=== PATIENT | male | born 1985 | race Caucasian/White ===

== ENCOUNTER 2019-12-29 13:37 | Outpatient (REF) | payer OTHER, SELFPAY | END 2019-12-29 13:38 | disposition home or self-care (01) | LOC: HO.LAB 13:37 | PROVIDERS: Visit Provider Internal Medicine | DX: Z20.828 Contact with and (suspected) exposure to other viral communicable diseases (principal) | CPT/HCPCS: U0003 ==

== ENCOUNTER 2023-06-12 08:42 | Outpatient (REF) | payer OTHER, SELFPAY ==
--- NOTE | ~2023-06-12 | XR_ITS ---
EXAMINATION: XR HIP, RIGHT CLINICAL INFORMATION: Ankylosing spondylitis. COMPARISON: None available. TECHNIQUE: AP and frog-leg lateral views of the right hip. FINDINGS: No fracture. Alignment is anatomic. Hip joint space is maintained. Soft tissues are unremarkable. XR/XR hip LT min 2V IMPRESSION: Normal right hip. EXAMINATION: XR HIP, LEFT CLINICAL INFORMATION: Ankylosing spondylitis. COMPARISON: None available. TECHNIQUE: AP and frog-leg lateral views of the left hip. FINDINGS: No fracture. Alignment is anatomic. Hip joint space is maintained. Soft tissues are unremarkable. IMPRESSION: Normal left hip.
--- NOTE | ~2023-06-12 | XR_ITS ---
EXAMINATION: XR HAND/WRIST, RIGHT CLINICAL INFORMATION: Ankylosing spondylitis. COMPARISON: Radiographs dated 09/01/2019. TECHNIQUE: PA, lateral, and oblique views of the right hand and wrist. FINDINGS: Bony alignment and mineralization are normal. No fracture or dislocation is seen. Alignment is anatomic. There is a neutral ulnar variance. The proximal and distal carpal rows are intact. The joint spaces are well-maintained. There are stable well marginated cysts noted of the trapezoid, the capitellum and of the ulnar styloid. No erosions are seen. No focal soft tissue swelling, calcification or foreign body is seen. XR/XR hand wrist LT IMPRESSION: Stable examination, without acute finding or unusual degenerative change noted. EXAMINATION: XR HAND/WRIST, LEFT CLINICAL INFORMATION: Ankylosing spondylitis. COMPARISON: Radiographs dated 09/01/2019. TECHNIQUE: PA, lateral, and oblique views of the left hand and wrist, together with a dedicated navicular view. FINDINGS: Bony alignment and mineralization are normal. No fracture or dislocation is seen. Alignment is anatomic. There is a neutral ulnar variance. The proximal and distal carpal rows are intact. Joint spaces are maintained. There are well marginated cysts noted of the trapezoid, which are unchanged from prior. No erosions are seen. There is a small degenerative calcification now seen adjacent to the distal radioulnar joint. IMPRESSION: Unremarkable radiographs of the hand and wrist, without unusual degenerative change noted.
--- NOTE | ~2023-06-12 | XR_ITS ---
EXAMINATION: XR SACROILIAC JOINTS CLINICAL INFORMATION: Ankylosing spondylitis. COMPARISON: Sacroiliac joint radiographs dated 01/13/2018. TECHNIQUE: AP and bilateral Judet views of the sacroiliac joints FINDINGS: Bones and soft tissues are normal. No fracture. Alignment is anatomic. Sacroiliac joint spaces are well-maintained without erosions or surrounding sclerosis. XR/XR sacroiliac joint min 3V IMPRESSION: Normal sacroiliac joints.
--- NOTE | ~2023-06-12 | XR_ITS ---
EXAMINATION: XR LUMBOSACRAL SPINE WITH OBLIQUES CLINICAL INFORMATION: Ankylosing spondylitis. COMPARISON: None available. TECHNIQUE: AP, both oblique, and lateral views of the lumbar spine. Lateral view of the lumbosacral junction. FINDINGS: Vertebral body heights are normal. There is a rudimentary disc space at S1-S2. There are Schmorl's nodes of the L3-L4 lower endplate. At L4-L5, there is mild posterior disc space narrowing and a 2 mm retrolisthesis. There is very mild disc space narrowing at L5-S1. No acute fracture or spondylolisthesis is seen. The posterior elements are intact. No spondylolysis defect is seen on the oblique views. The paravertebral soft tissues are unremarkable. XR/XR lumbar spine 4V min IMPRESSION: 1. There is mild degenerative disc disease at L4-L5 and L5-S1. 2. No acute fracture or spondylolisthesis is seen. There is no spondylolysis defect.
--- NOTE | ~2023-06-12 | XR_ITS ---
EXAMINATION: XR HIP, RIGHT CLINICAL INFORMATION: Ankylosing spondylitis. COMPARISON: None available. TECHNIQUE: AP and frog-leg lateral views of the right hip. FINDINGS: No fracture. Alignment is anatomic. Hip joint space is maintained. Soft tissues are unremarkable. XR/XR hip RT min 2V IMPRESSION: Normal right hip. EXAMINATION: XR HIP, LEFT CLINICAL INFORMATION: Ankylosing spondylitis. COMPARISON: None available. TECHNIQUE: AP and frog-leg lateral views of the left hip. FINDINGS: No fracture. Alignment is anatomic. Hip joint space is maintained. Soft tissues are unremarkable. IMPRESSION: Normal left hip.
--- NOTE | ~2023-06-12 | XR_ITS ---
EXAMINATION: XR HAND/WRIST, RIGHT CLINICAL INFORMATION: Ankylosing spondylitis. COMPARISON: Radiographs dated 09/01/2019. TECHNIQUE: PA, lateral, and oblique views of the right hand and wrist. FINDINGS: Bony alignment and mineralization are normal. No fracture or dislocation is seen. Alignment is anatomic. There is a neutral ulnar variance. The proximal and distal carpal rows are intact. The joint spaces are well-maintained. There are stable well marginated cysts noted of the trapezoid, the capitellum and of the ulnar styloid. No erosions are seen. No focal soft tissue swelling, calcification or foreign body is seen. XR/XR hand wrist RT IMPRESSION: Stable examination, without acute finding or unusual degenerative change noted. EXAMINATION: XR HAND/WRIST, LEFT CLINICAL INFORMATION: Ankylosing spondylitis. COMPARISON: Radiographs dated 09/01/2019. TECHNIQUE: PA, lateral, and oblique views of the left hand and wrist, together with a dedicated navicular view. FINDINGS: Bony alignment and mineralization are normal. No fracture or dislocation is seen. Alignment is anatomic. There is a neutral ulnar variance. The proximal and distal carpal rows are intact. Joint spaces are maintained. There are well marginated cysts noted of the trapezoid, which are unchanged from prior. No erosions are seen. There is a small degenerative calcification now seen adjacent to the distal radioulnar joint. IMPRESSION: Unremarkable radiographs of the hand and wrist, without unusual degenerative change noted.
[2023-06-12 09:52] LABS: MANUAL DIFF FLAG NO
[2023-06-12 10:16] LABS: Basophils Percent Auto 0.2 % (0-2); Eosinophils Absolute Auto 0.2 X10*3/uL (0.0-0.4); Eosinophils Percent Auto 2.6 % (0-4); Hematocrit 37.9 % (42.0-52.0); Hemoglobin 12.1 g/dl (14.0-18.0); Imm Gran Abs Auto 0.01 X10*3/uL (0.00-0.03); Imm Gran Pct Auto 0.2 % (0.0-0.4); Lymphocytes Absolute Auto 1.3 X10*3/uL (1.2-4.9); Lymphocytes Percent Auto 20.5 % (20-40); Mean Corpuscular HGB Conc 31.9 g/dl (31.0-36.0); Mean Corpuscular Hemoglobin 24.3 pg (27.0-33.0); Mean Corpuscular Volume 76.3 fL (80.0-98.0); Mean Platelet Volume 8.7 fL (9.4-12.4); Monocytes Absolute Auto 0.4 X10*3/uL (0.1-1.2); Monocytes Percent Auto 6.6 % (2-11); Neutrophils Absolute Auto 4.3 x10*3/uL (2.0-8.3); Neutrophils Percent Auto 69.9 % (45-73); Platelet Count 552 X10*3/uL (160-400); Red Blood Count 4.97 X10*6/uL (4.60-5.80); Red Cell Distribution Width 18.3 % (11.0-16.0); White Blood Count 6.2 X10*3/uL (4.8-10.8)
[2023-06-12 11:00] LABS: Alanine Aminotransferase 15 U/L (0-40); Albumin Level 3.7 g/dL (3.5-5.0); Alkaline Phosphatase 103 U/L (39-117); Anion Gap 11 (12-20); Aspartate Amino Transferase 24 U/L (5-37); Bilirubin Total 0.4 mg/dL (0.0-1.0); Blood Urea Nitrogen 6 mg/dL (9-16); C Reactive Protein 11.77 mg/dL (< or = 0.50); Carbon Dioxide 28 mmol/L (22-29); Chloride 98 mmol/L (96-108); Estimated Glomerular Filt Rate > 60; Glucose Random 123 mg/dL (60-115); Potassium 3.9 mmol/L (3.3-5.1); Sodium 133 mmol/L (135-145); Total Protein 9.1 g/dL (6.5-8.0)
[2023-06-12 11:05] LABS: HBS Num1 > 1000.00 mIU/mL (0-7.99); HBc Num1 0.09 S/CO (0.00-0.79); HBsAGNum1 0.34 S/CO (0.00-0.99); HIV AB/AG Nonreactive (Nonreactive); HIV Num 1 0.08 S/CO (0.00-0.99); Hepatitis A Antibody IgM 0.16 Index (0-0.79); Hepatitis B Core Antibody Nonreactive (Nonreactive); Hepatitis B Surface Antigen Negative (Negative); ~Hepatitis A Antibody IgM Nonreactive (Nonreactive); ~Hepatitis B Surface Antibody REACTIVE (Nonreactive); ~Hepatitis C Antibody Nonreactive (Nonreactive)
[2023-06-12 11:41] LABS: Erythrocyte Sedimentation Rate 78 MM/HR (0-15)
[2023-06-13 22:09] LABS: Prot Elec - Albumin 3.3 g/dL (3.8-4.8); Prot Elec - Alpha1 0.6 g/dL (0.2-0.3); Prot Elec - Alpha2 1.1 g/dL (0.5-0.9); Prot Elec - Beta 1 0.6 g/dL (0.4-0.6); Prot Elec - Beta 2 0.7 g/dL (0.2-0.5); Prot Elec - Gamma 2.1 g/dL (0.8-1.7); Prot Elec - Total Protein 8.4 g/dL (6.1-8.1)
[2023-06-15 08:08] LABS: TS Negative Control Passed; TS Panel A 0; TS Panel B 0; TS Positive Control Passed; TSpotTB Negative (Negative)
[2023-06-18 09:08] LABS: IgA 555 mg/dL (47-310); IgG 2258 mg/dL (600-1640); IgM 261 mg/dL (50-300)
[2023-06-21 08:51] LABS: Adalimumab Drug Level <0.8; Anti-Adalimumab Antibody >100 (H)
== END 2023-06-12 08:43 | disposition home or self-care (01) ==
LOC: HO.XRAY 08:42
PROVIDERS: PCP Internal Medicine; Visit Provider Student in an Organized Health Care Education/Training Program
DX: Z11.7 Encounter for testing for latent tuberculosis infection (principal); Z11.4 Encounter for screening for human immunodeficiency virus [HIV]; Z11.59 Encounter for screening for other viral diseases; M45.8 Ankylosing spondylitis sacral and sacrococcygeal region; Z79.899 Other long term (current) drug therapy; Z72.89 Other problems related to lifestyle
CPT/HCPCS: 36415; 72110; 72202; 73110; 73130; 73502; 80053; 80145; 82784; 83520; 84165; 85025; 85652; 86140; 86334; 86481; 86704; 86706; 86709; 86803; 87340; 87389; 99202

== ENCOUNTER 2023-06-12 08:42 | Outpatient (AMB) | payer OTHER, SELFPAY ==
[2023-06-12 08:46] VITALS: BP 138/76; PULSE 127; O2SAT 98
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
== END 2023-06-12 09:17 | disposition home or self-care (01) ==
PROVIDERS: PCP Internal Medicine; Referring Provider Internal Medicine; Visit Provider Student in an Organized Health Care Education/Training Program
DX: M45.8 Ankylosing spondylitis sacral and sacrococcygeal region (principal)
CPT/HCPCS: 99204

== ENCOUNTER 2023-09-26 15:34 | Outpatient (AMB) | payer OTHER, SELFPAY ==
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
[2023-09-26 15:49] VITALS: BP 142/80; PULSE 102; O2SAT 96; BMI 30.6
== END 2023-09-26 16:09 | disposition home or self-care (01) ==
PROVIDERS: PCP Internal Medicine; Visit Provider Student in an Organized Health Care Education/Training Program
DX: M45.8 Ankylosing spondylitis sacral and sacrococcygeal region (principal); Z79.899 Other long term (current) drug therapy
CPT/HCPCS: 99214

== ENCOUNTER → 2023-09-26 15:34 | Outpatient (BNVA) | payer OTHER, SELFPAY | PROVIDERS: PCP Internal Medicine; Visit Provider Student in an Organized Health Care Education/Training Program | DX: M45.8 Ankylosing spondylitis sacral and sacrococcygeal region (principal); Z79.899 Other long term (current) drug therapy | CPT/HCPCS: 99212 ==

== ENCOUNTER 2023-12-27 13:17 | Outpatient (REF) | payer OTHER, SELFPAY ==
[2023-12-27 13:31] LABS: MANUAL DIFF FLAG NO
[2023-12-27 13:48] LABS: Basophils Percent Auto 0.3 % (0-2); Eosinophils Absolute Auto 0.2 X10*3/uL (0.0-0.4); Eosinophils Percent Auto 5.4 % (0-4); Hematocrit 41.7 % (42.0-52.0); Imm Gran Abs Auto 0.01 X10*3/uL (0.00-0.03); Imm Gran Pct Auto 0.3 % (0.0-0.4); Lymphocytes Absolute Auto 1.6 X10*3/uL (1.2-4.9); Lymphocytes Percent Auto 41.2 % (20-40); Mean Corpuscular HGB Conc 31.2 g/dl (31.0-36.0); Mean Corpuscular Hemoglobin 24.2 pg (27.0-33.0); Mean Corpuscular Volume 77.5 fL (80.0-98.0); Mean Platelet Volume 8.6 fL (9.4-12.4); Monocytes Absolute Auto 0.3 X10*3/uL (0.1-1.2); Monocytes Percent Auto 8.5 % (2-11); Neutrophils Absolute Auto 1.7 x10*3/uL (2.0-8.3); Neutrophils Percent Auto 44.3 % (45-73); Platelet Count 448 X10*3/uL (160-400); Red Blood Count 5.38 X10*6/uL (4.60-5.80); White Blood Count 3.9 X10*3/uL (4.8-10.8)
[2023-12-27 14:26] LABS: Alanine Aminotransferase 14 U/L (0-40); Alkaline Phosphatase 121 U/L (39-117); Anion Gap 15 (12-20); Aspartate Amino Transferase 27 U/L (5-37); Bilirubin Total 0.3 mg/dL (0.0-1.0); Blood Urea Nitrogen 7 mg/dL (9-16); C Reactive Protein 1.92 mg/dL (< or = 0.50); Calcium 9.5 mg/dL (8.4-10.2); Carbon Dioxide 23 mmol/L (22-29); Chloride 106 mmol/L (96-108); Estimated Glomerular Filt Rate > 60; Glucose Random 144 mg/dL (60-115); Potassium 4.1 mmol/L (3.3-5.1); Sodium 140 mmol/L (135-145); Total Protein 8.9 g/dL (6.5-8.0)
[2023-12-27 14:29] LABS: Erythrocyte Sedimentation Rate 40 MM/HR (0-15)
== END 2023-12-27 13:18 | disposition home or self-care (01) ==
LOC: HO.LAB 13:17
PROVIDERS: Visit Provider Student in an Organized Health Care Education/Training Program
DX: M45.8 Ankylosing spondylitis sacral and sacrococcygeal region (principal)
CPT/HCPCS: 36415; 80053; 85025; 85652; 86140

== ENCOUNTER 2023-12-30 15:35 | Outpatient (AMB) | payer OTHER, SELFPAY ==
[2023-12-30 15:40] VITALS: BP 132/72; PULSE 92; O2SAT 97; BMI 32.8
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
== END 2023-12-30 16:11 | disposition home or self-care (01) ==
LOC: HO.RHE 15:36
PROVIDERS: PCP Internal Medicine; Visit Provider Student in an Organized Health Care Education/Training Program
DX: M45.8 Ankylosing spondylitis sacral and sacrococcygeal region (principal); Z79.899 Other long term (current) drug therapy
CPT/HCPCS: 99214

== ENCOUNTER → 2023-12-30 15:35 | Outpatient (BNVA) | payer OTHER, SELFPAY | PROVIDERS: PCP Internal Medicine; Visit Provider Student in an Organized Health Care Education/Training Program | DX: M45.8 Ankylosing spondylitis sacral and sacrococcygeal region (principal); Z79.899 Other long term (current) drug therapy | CPT/HCPCS: 99212 ==

== ENCOUNTER 2024-06-18 10:03 | Outpatient (REF) | payer OTHER, SELFPAY ==
[2024-06-18 10:16] LABS: MANUAL DIFF FLAG NO
[2024-06-18 10:41] LABS: Basophils Percent Auto 0.3 % (0-2); Eosinophils Absolute Auto 0.4 X10*3/uL (0.0-0.4); Eosinophils Percent Auto 6.5 % (0-4); Hematocrit 42.3 % (42.0-52.0); Hemoglobin 13.4 g/dl (14.0-18.0); Imm Gran Abs Auto 0.02 X10*3/uL (0.00-0.03); Imm Gran Pct Auto 0.3 % (0.0-0.4); Lymphocytes Percent Auto 17.8 % (20-40); Mean Corpuscular HGB Conc 31.7 g/dl (31.0-36.0); Mean Corpuscular Volume 82.1 fL (80.0-98.0); Mean Platelet Volume 9.5 fL (9.4-12.4); Monocytes Absolute Auto 0.4 X10*3/uL (0.1-1.2); Monocytes Percent Auto 7.2 % (2-11); Neutrophils Absolute Auto 3.9 x10*3/uL (2.0-8.3); Neutrophils Percent Auto 67.9 % (45-73); Platelet Count 384 X10*3/uL (160-400); Red Blood Count 5.15 X10*6/uL (4.60-5.80); Red Cell Distribution Width 15.9 % (11.0-16.0); White Blood Count 5.7 X10*3/uL (4.8-10.8)
[2024-06-18 11:20] LABS: Alanine Aminotransferase 22 U/L (0-40); Albumin Level 3.6 g/dL (3.5-5.0); Alkaline Phosphatase 100 U/L (39-117); Anion Gap 8 (12-20); Aspartate Amino Transferase 31 U/L (5-37); Bilirubin Total 0.3 mg/dL (0.0-1.0); Blood Urea Nitrogen 10 mg/dL (9-16); Calcium 9.2 mg/dL (8.4-10.2); Carbon Dioxide 27 mmol/L (22-29); Chloride 106 mmol/L (96-108); Estimated Glomerular Filt Rate > 60; Glucose Random 171 mg/dL (60-115); Potassium 4.1 mmol/L (3.3-5.1); Sodium 137 mmol/L (135-145); Total Protein 7.5 g/dL (6.5-8.0)
--- OUTSIDE RECORDS SUMMARY | 2024-06-18 11:29 | XMS_ITS | Clinical Summary ---
Author Organization [facility] Address [address] [place] [address] Care Team Providers Care Or Rn Name Role Phone Zoe Hawkins MD Primary Care Provider [phone] Allergies No known active allergies Medications Medication Sig Dispensed Refills Start Date End Date Status traMADol (ULTRAM) 50 MG tablet Take 50 mg by mouth every 6 (six) hours as needed for pain. 30 tablet 0 01/30/2017 Active diazepam (VALIUM) tablet 5 mg Take 1 tablet (5 mg total) by mouth every 6 (six) hours as needed. 10 tablet 0 01/30/2017 Active naproxen (NAPROSYN) 375 MG tablet Take 1 tablet (375 mg total) by mouth 2 (two) times a day with meals. 20 tablet 0 01/30/2017 Active Social History Tobacco Use Types Packs/Day Years Used Date Smoking Tobacco: Never Assessed Sex and Gender Information Value Date Recorded Sex Assigned at Not on file Gender Identity Not on file Sexual Orientation Not on file Last Filed Vital Signs Vital Sign Reading Time Taken Comments Blood Pressure 161/96 01/30/2017 1:48 PM EST Pulse 70 01/30/2017 1:48 PM EST Temperature 36.7 ??C (98.1 ??F) 01/30/2017 1:48 PM ES T Respiratory Rate 18 01/30/2017 1:48 PM EST Oxygen Saturation 100% 01/30/2017 1:48 PM EST Inhaled Oxygen Concentration - - Weight 111.1 kg (245 lb) 01/30/2017 1:48 PM EST Height 190.5 cm (6' 3 ) 01/30/2017 1:48 PM EST Body Mass Index 30.62 01/30/2017 1:48 PM EST Plan of Treatment Health Maintenance Due Date Last Done Comments Hepatitis B Vaccines (1 of 3 - 3-dose series) 1985 Hepatitis C Screening 1985 COVID-19 Vaccine (#1) 1985 Depression Screening 1997 Preventative Health Evaluation 05/30/2003 DTap / Tdap / Td (1 - Tdap) 2004 Influenza Vaccine (#1) 2023 Pneumococcal Vaccine Aged Out No long er eligible based on patient's age to complete this topic RSV Ped < 20 months Aged Out No longe r eligible based on patient's age to complete this topic Care Teams Or Rn Relationship Specialty Start Date End Date Zoe Hawkins MD [address] [place] [address] PCP - General Internal Medicine 01/30/17
[2024-06-18 11:37] LABS: Erythrocyte Sedimentation Rate 31 MM/HR (0-15)
== END 2024-06-18 10:04 | disposition home or self-care (01) ==
LOC: HO.LAB 10:03
PROVIDERS: PCP Student in an Organized Health Care Education/Training Program; Visit Provider Student in an Organized Health Care Education/Training Program
DX: M45.8 Ankylosing spondylitis sacral and sacrococcygeal region (principal); Z79.899 Other long term (current) drug therapy
CPT/HCPCS: 36415; 80053; 85025; 85652; 86140

== ENCOUNTER 2024-09-24 09:39 | Outpatient (AMB) | payer OTHER, SELFPAY ==
--- NOTE | 2024-09-24 09:41 | MHC.OFFVIS ---
Vital Signs 09/24/24 09:46 Height 6 ft 3 in Weight 270 lb 11.642 oz BMI 33.8 BP 152/100 H Blood Pressure Location Rt brachial Position Sitting Pulse 86 Pulse Source Pulse Oximeter Pulse Oximetry (%) 98 Oxygen Delivery Method Room Air Intake Visit Reasons: Intake Note: Patient presents for follow up. Allergies No Known Allergies Allergy (Verified 09/24/24 09:45) Medication List - Last Reconciled 09/24/24 by Yarely Odonnell MD Enbrel SureClick (etanercept) 50 mg subcut QWEEK NS HPI Comments Details: Patient is a 39 y.o. male with HLA B27 positive ankylosing spondylitis here today for follow up Interval History: Patient last seen 12/30/23 - On Enbrel 50mg SC weekly (started 09/2023) - Ran out of his injection 2 weeks prior to appt, c/o intermittent pain and swelling of different joints - AM stiffness about 10 mins - Flare attributed to non compliance with Enbrel, no changes made to medication Today, - Doing well on Enbrel - Improved AM stiffness and joint pain Rheumatologic History: Ankylosing spondylitis +HLA b27 R sacroiliitis on MRI Humira started around 2018 effective, then 2ry non response +++Adalimumab Ab. DC 09/2023 Enbrel 09/2023 effective Initial history with me: This is a 38-year-old male with HLA B27 positive ankylosing spondylitis who presents as a new patient. Patient was diagnosed with HLA B27 positive ankylosing spondylitis [place] [address] Vickers and was on Humira 40 mg every other week. States that he was doing fairly well until about 1 year ago when he started noticing worsening generalized pains. States that the Humira only helped for about a week. Then he starts having generalized pain and stiffness of his back as well as intermittent swelling of his hands, wrists, ankles. Generalized stiffness whenever he is in 1 spot for some time. He takes ibuprofen 800 mg twice a day and sometimes takes Aleve. He denies any history suggestive of uveitis or IBD. Has lost 25 lb of weight over the last year due to lack of appetite. Has not had any fevers. Denies any family history of an autoimmune rheumatic disease. Denies any history of DVT/PE. Per Dr. Vickers: Initially referred by PCP for evaluation of low back pain with Xrays consistent? with sacroiliitis. Xray showed bilateral sacroiliitis with a possible erosion.? MRI of L spine done in July 2017 showed possible R sided sacroilitis. Labs? significant for elevated CRP and + HLA-B27. MRI from 02/11 with R sided? sacroilitis.? Current Rheumatology Medication(s): Enbrel 50mg SC weekly [facility] Medical History PTSD (post-traumatic stress disorder) Pain in joint, multiple sites Attention and concentration deficit Esophageal reflux Ankylosing spondylitis Surgical History No history of previous surgery Family History Mother No problems noted. Father No problems noted. Social History Alcohol intake: current Alcohol intake frequency: a few times a week Patient Tobacco Use Status: Never used Tobacco Review of Systems Const Details: Review of Systems Constitutional: Denies fever, chills, weight loss ENT: Denies vision changes, eye pain or eye redness, dental caries, dry mouth GI: Denies nausea, vomiting, diarrhea, abdominal pain, change in BM Pulm: Denies SOB, VILLATORO, hemoptysis, wheezing Cards: Denies chest pain, palpitations Skin: Denies Raynaud's, rash, nail changes, photosensitivity, [employer] MECHANIC: Denies headaches, weakness, paresthesias, recurrent falls MSK: as per HPI All other systems reviewed and are unremarkable except noted above Physical Exam Exam Exam: Vital signs reviewed Physical Examination CONSTITUITIONAL Patient alert and cooperative. Well appearing and in no apparent painful distress MSK Hands Right Hand: Able to make a fist. No swelling or tenderness to palpation of these joints. No deformities noted. Left Hand: Able to make a fist. No swelling or tenderness to palpation of these joints. No deformities noted. Wrists Right Wrist: Full ROM. 70 degrees of wrist flexion, 80 degrees of wrist extension. No swelling or TTP Left Wrist: Full ROM. 70 degrees of wrist flexion, 80 degrees of wrist extension. No swelling or TTP Elbows Right Elbow: Full ROM. No swelling or TTP. No TTP of the medial and lateral epicondyles Left Elbow: Full ROM. No swelling or TTP. No TTP of the medial and lateral epicondyles Shoulders Right shoulder: Full ROM. No swelling noted. No TTP of the AC joint, subacromial bursa or posterior shoulder Left shoulder: Full ROM. No swelling noted. No TTP of the AC joint, subacromial bursa or posterior shoulder Knees Right knee: Full ROM. No swelling noted. No TTP of the knee joint lie or pes anserine bursa Left knee: Full ROM. No swelling noted. No TTP of the knee joint lie or pes anserine bursa. Ankles Right ankle: Good ankle dorsiflexion and plantar flexion. No swelling. No TTP of the ankle joint Left ankle: Good ankle dorsiflexion and plantar flexion. No swelling. No TTP of the ankle joint Feet Right foot: Negative squeeze test Left foot: Negative squeeze test Tender points? No tenderness to palpation of the bilateral trapezius, supraspinatus, anterior costochondral junctions, bilateral suboccipital muscle insertions SKIN No rashes Vital Signs: Last Vital Signs Pulse 86 09/24/24 09:46 BP 152/100 H 09/24/24 09:46 Pulse Ox 98 09/24/24 09:46 Oxygen Delivery Method Room Air 09/24/24 09:46 BMI result Body Mass Index 33.8 Results Reviewed Results Reviewed: Laboratory Tests 12/27/23 06/18/24 13:29 10:14 WBC 5.7 RBC 5.15 Hgb 13.4 L Hct 42.3 Plt Count 384 ESR 31 H Sodium 137 Potassium 4.1 Chloride 106 Carbon Dioxide 27 BUN 10 Creatinine 0.72 AST 31 ALT 22 C-Reactive Protein 1.92 H 3.70 H Rheumatology labs 01/13/18 10:10 Rheumatoid Factor < 15.0 Cycl Citrul Peptide IgG <16 QUIRINO Screen Negative HLA-B27 Positive H Infectious serologies 06/12/23 09:52 Hepatitis A IgM Ab Nonreactive Hep Bs Antigen Negative Hep Bs Antibody REACTIVE Hep B Core Total Ab Nonreactive Hepatitis C Ab (EIA) Nonreactive HIV 1&2 Ab/P24 Ag 4thGn Nonreactive TB Test (T-Spot) Com Negative Assessment & Plan Assessment & Plan (1) Ankylosing spondylitis: Comment: +HLA b27 R sacroiliitis on MRI Humira started around 2018 effective, then 2ry non response +++Adalimumab Ab. DC 09/2023 Enbrel 09/2023 effective Code(s): M45.9 - Ankylosing spondylitis of unspecified sites in spine Category: Medical Qualifiers: Ankylosing spondylitis location: sacral region Qualified Code(s): M45.8 - Ankylosing spondylitis sacral and sacrococcygeal region Plan: #Ankylosing spondylitis Patient is a 39-year-old male with HLA B27 positive ankylosing spondylitis here today for follow up. Currently doing well on Enbrel with improvement in his joint pain and morning stiffness. Plan - Enbrel 50mg SC weekly - Labs today: CBC, CMP, ESR, CRP, Hepatitis panel and T spot (printed and patient will have them done at the [facility]) - RTC 6 months - Labs before visit: CBC, CMP, ESR, CRP (2) Encounter for monitoring of etanercept therapy: Code(s): Z51.81 - Encounter for therapeutic drug level monitoring; Z79.620 - [facility] (current) use of immunosuppressive biologic Plan: #Long-term Use of TNF Inhibitors: Enbrel Discussed with the patient the benefits and risks of TNF inhibitors for the management of the rheumatic condition Benefits include reduce pain, maintenance of remission and reduction of flares as well as progression of the disease Risks include injection sites/infusion reactions, serious infections (such as bacterial infections, opportunistic infections), malignancy, delaminating syndromes, autoimmune phenomena, CHF exacerbations, palmar plantar psoriasis and cytopenias Recommended rotating injection sites, and holding medication during and for up to 1 week after resolution of a febrile illness or open skin wound Plan I spent 30 minutes reviewing the record and labs, taking a history, examining the patient, discussing the treatment plan, ordering diagnostic work up and documenting in the medical record Orders: Orders Complete Blood Count Auto Diff 6 Months M45.8 - Ankylosing spondylitis sacral and sacrococcygeal region Comprehensive Met. Panel 6 Months M45.8 - Ankylosing spondylitis sacral and sacrococcygeal region Erythrocyte Sedimentation Rate 6 Months M45.8 - Ankylosing spondylitis sacral and sacrococcygeal region C Reactive Protein 6 Months M45.8 - Ankylosing spondylitis sacral and sacrococcygeal region Medications: Refilled Enbrel SureClick (etanercept) 50 mg subcut QWEEK 4 mL 5RF NS M45.8 - Ankylosing spondylitis sacral and sacrococcygeal region Coding Level of Care Code Est Pt Level 4 (78700) Complex EM visit Add On G2211 Diagnoses Ankylosing spondylitis of sacral region M45.8 Ankylosing spondylitis location: sacral region Encounter for monitoring of etanercept therapy Z51.81; Z79.620
[2024-09-24 09:46] VITALS: BP 152/100; PULSE 86; O2SAT 98; BMI 33.8
--- OUTSIDE RECORDS SUMMARY | 2024-09-24 10:04 | XMS_ITS | Clinical Summary ---
Author Organization [facility] Address [address] [place] [address] Care Team Providers Care Volunteer Recruiter Name Role Phone Zoe Hawkins MD Primary Care Provider [phone] Allergies No known active allergies Medications Medication [...] 70 01/30/2017 1:48 PM EST Temperature 36.7 C (98.1 F) 01/30/2017 1:48 PM EST Respiratory Rate 18 01/30/2017 1:48 PM EST [...] (1 - Tdap) 2004 Influenza Vaccine (#1) 2024 Pneumococcal Vaccine Aged Out No long er eligible based on patient's age to complete this topic RSV Ped < 20 months Aged Out No longe r eligible based on patient's age to complete this topic Care Teams Volunteer Recruiter Relationship Specialty Start Date End Date Zoe Hawkins MD [address] [place] [id number] PCP - General Internal Medicine 01/30/17
--- OUTSIDE RECORDS SUMMARY | 2024-09-24 10:04 | XMS_ITS | Clinical Summary ---
Author Organization [facility] Address [id number] [place] [id number] Care Team Providers Care Product Architect Name Role Phone Sita Hawkins MD Primary Care Provider [phone] Social History Tobacco Use Types Packs/Day Years Used Date Smoking Tobacco: Never Assessed Sex and Gender Information Value Date Recorded Sex Assigned at Not on file Legal Sex Male 5:02 PM EST Gender Identity Not on file Sexual Orientation Not on file Plan of Treatment Health Maintenance Due Date Last Done Comments DTaP,Tdap,and Td Vaccines (1 - Tdap) 2004 Hepatitis B Vaccines (1 of 3 - 19+ 3-dose series) 2004 COVID-19 Vaccine (2023-2 5 season) 2023 Depression Screening 02/26/2024 Influenza Vaccine (#1) 2024 HIB Vaccines Aged Out No longer eligi ble based on patient's age to complete this topic HPV Vaccines Aged Out No longer eligi ble based on patient's age to complete this topic Hepatitis A Vaccines Aged Out No long er eligible based on patient's age to complete this topic IPV Vaccines Aged Out No longer eligi ble based on patient's age to complete this topic MMR Vaccines Aged Out No longer eligi ble based on patient's age to complete this topic Meningococcal ACWY Vaccine Aged Out N o longer eligible based on patient's age to complete this topic Meningococcal B Vaccine Aged Out No l onger eligible based on patient's age to complete this topic Pneumococcal Vaccine: Pediat rics (0 to 5 Years) and At-Risk Patients (6 to 49 Years) Aged Out No longer eligible b ased on patient's age to complete this topic RSV Immunization Patients Un farooq 20 months Aged Out No longer eligible b ased on patient's age to complete this topic Varicella Vaccines Aged Out No longer eligible based on patient's age to complete this topic Care Teams Product Architect Relationship Specialty Start Date End Date Sita Hawkins MD [address] [place] [id number] PCP - General Internal Medicine 11/05/18
== END 2024-09-24 10:04 | disposition home or self-care (01) ==
LOC: HO.RHE 09:40
PROVIDERS: PCP Internal Medicine; Referring Provider Student in an Organized Health Care Education/Training Program; Visit Provider Student in an Organized Health Care Education/Training Program
DX: M45.8 Ankylosing spondylitis sacral and sacrococcygeal region (principal); Z51.81 Encounter for therapeutic drug level monitoring; Z79.620 Long term (current) use of immunosuppressive biologic
CPT/HCPCS: 99214; G2211

== ENCOUNTER → 2024-09-24 09:39 | Outpatient (BNVA) | payer OTHER, SELFPAY | PROVIDERS: PCP Internal Medicine; Visit Provider Student in an Organized Health Care Education/Training Program | DX: M45.8 Ankylosing spondylitis sacral and sacrococcygeal region (principal); Z51.81 Encounter for therapeutic drug level monitoring; Z79.899 Other long term (current) drug therapy | CPT/HCPCS: 99212 ==